=== PATIENT | female | born 1995 | race Caucasian/White ===

== ENCOUNTER → 2018-06-03 | Outpatient (CLI) | payer BC | END | disposition home or self-care (01) | LOC: US 05:46 | DX: M25.562 Pain in left knee (principal); R10.11 Right upper quadrant pain; N28.1 Cyst of kidney, acquired ==

== ENCOUNTER 2019-06-09 22:21 | Emergency (ER) | payer BC ==
[~2019-06-09] VITALS: Ht 162.5 cm; Wt 93.0 kg
[2019-06-10] MEDS ORDERED: LEVAQUIN750 M1 PO (02:39)
[2019-06-10] MEDS ORDERED: CYCLOBENZAPRINE10 MG PO (02:39)
== END 2019-06-10 02:50 | disposition home or self-care (01) ==
LOC: ED 22:21
DX: S16.1XXA Strain of muscle, fascia and tendon at neck level, initial encounter (principal); J18.9 Pneumonia, unspecified organism; Z91.030 Bee allergy status; X50.1XXA Overexertion from prolonged static or awkward postures, initial encounter; Y93.89 Activity, other specified; Y92.89 Other specified places as the place of occurrence of the external cause; Y99.9 Unspecified external cause status

== ENCOUNTER 2020-03-18 18:04 | Emergency (ER) | payer BC ==
[~2020-03-18] VITALS: Ht 165.1 cm; Wt 95.3 kg
[~2020-03-18 18:04] MED LIST: CYCLOBENZAPRINE10 MG PO; LEVAQUIN750 M1 PO
== END 2020-03-18 19:48 | disposition home or self-care (01) ==
LOC: ED 18:04
DX: S63.501A Unspecified sprain of right wrist, initial encounter (principal); F17.200 Nicotine dependence, unspecified, uncomplicated; Z91.030 Bee allergy status; Z79.899 Other long term (current) drug therapy; X58.XXXA Exposure to other specified factors, initial encounter; Y93.89 Activity, other specified; Y92.89 Other specified places as the place of occurrence of the external cause; Y99.8 Other external cause status

== ENCOUNTER 2020-04-29 22:00 | Emergency (ER) | payer BC ==
[~2020-04-29] VITALS: Ht 165.1 cm; Wt 98.9 kg
[2020-04-29 22:51] LABS: BASO # 0.1 10*3/uL (0.0-0.1); BASO % 0.7 % (0.0-1.0); EOS # 0.1 10*3/uL (0.0-0.4); EOS % 1.1 % (1.0-4.0); HEMATOCRIT 41.2 % (37.0-47.0); LYMPH # 2.4 10*3/uL (1.3-4.4); LYMPH % 22.2 % (27.0-41.0); MEAN CELL VOLUME 88.8 fl (81.0-99.0); MEAN CORPUSCULAR HGB 29.3 pg (27.0-31.0); MEAN PLATELET VOLUME 10.8 fl (9.6-12.3); MONO # 0.6 10*3/uL (0.1-1.0); MONO % 5.2 % (3.0-9.0); NEUT # 7.7 10*3/uL (2.3-7.9); NEUT % 70.5 % (47.0-73.0); PLATELET COUNT AUTOMATED 351 10*3/uL (130-400); RED BLOOD COUNT 4.64 10*6/uL (4.10-5.10); RED CELL DISTRI WIDTH 12.9 % (0-14.5); WHITE BLOOD COUNT 10.9 10*3/uL (4.8-10.8)
[2020-04-29 23:07] LABS: ALBUMIN 3.8 gm/dl (3.1-4.5); ALKALINE PHOSPHATASE 76 U/L (45-117); BUN 8 mg/dl (7-24); CHLORIDE 110 mmol/L (98-107); POTASSIUM 3.3 mmol/L (3.5-5.1); SGOT/AST 17 IU/L (3-35); SGPT/ALT 30 U/L (12-78); SODIUM 140 mmol/L (136-145); TOTAL PROTEIN 7.4 gm/dL (6.4-8.2)
[2020-04-29 23:29] LABS: BILIRUBIN NEGATIVE (NEGATIVE); CLARITY CLEAR (CLEAR); COLOR YELLOW (YELLOW); GLUCOSE NEGATIVE (NEGATIVE); KETONE NEGATIVE (NEGATIVE); SPECIFIC GRAVITY 1.015 (1.005-1.030)
[2020-04-29 23:30] LABS: BLOOD 3+ (NEGATIVE); PH 6.5 (5.0-9.0); UROBILINOGEN 0.2 E.U./dl (0.2-1.0)
[2020-04-29 23:35] LABS: LEUKO ESTERASE 1+ (NEGATIVE); NITRITE NEGATIVE (NEGATIVE)
[2020-04-29 23:37] LABS: BACTERIA 1+; RBC TNTC rbc/hpf (0-2)
[2020-04-30] MEDS ORDERED: PYRIDIUM200 M1 PO (01:19)
[2020-04-30] MEDS ORDERED: SEPTDS PO (01:19)
== END 2020-04-30 01:36 | disposition home or self-care (01) ==
LOC: ED 22:00
PROVIDERS: Emergency Medicine
DX: N39.0 Urinary tract infection, site not specified (principal); Z91.030 Bee allergy status